=== PATIENT | female | born 1945 | race Caucasian/White ===

== ENCOUNTER 2021-12-12 16:32 | Inpatient (IN) | payer MEDICARE ==
[2021-12-12] MEDS ORDERED: Albuterol 200 PUFF (6.7GM INHALER) INH PRN (17:11)
[2021-12-12] MEDS ORDERED: HYDROcodone/Acetaminophen 5/325 mg Tablet PO PRN (17:11)
[2021-12-12] MEDS ORDERED: Acetaminophen 325 MG TAB PO PRN (17:15)
[2021-12-12] MEDS ORDERED: Bisacodyl 5 MG TAB PO PRN (17:15)
[2021-12-12] MEDS ORDERED: Ondansetron ODT 4 MG TAB PO PRN (17:15)
[2021-12-12] MEDS: Apixaban 5 MG TAB PO SCH (21:58)
[2021-12-12] MEDS: Atorvastatin Calcium 10 MG TAB PO SCH (21:58)
[2021-12-12] MEDS: Brimonidine Tartrate 0.2% Ophth Soln 5 ml Bottle EA EYE SCH (21:59)
[2021-12-12] MEDS: Famotidine 20 MG TAB PO SCH (21:59)
[2021-12-12] MEDS: Timolol 0.5% Ophth Soln 5 ml Bottle EA EYE SCH (22:00)
[2021-12-13 05:49] LABS: #Eosinphils 0.1 thou/uL (0.0-0.7); #Lymphocytes 1.3 thou/uL (1.20-3.40); #Monocytes 0.9 thou/uL (0.11-0.59); #Neutrophils 5.8 thou/uL (1.40-6.50); %Basophils 0.6 % (0.0-1.0); %Eosinophils 1.4 % (0.0-10.0); %Lymphocytes 15.9 % (21.0-51.0); %Monocytes 10.8 % (0.0-10.0); %Neutrophils 71.4 % (42.0-75.0); Mean Corpuscular HGB CONC 34.2 g/dL (32.0-36.0); Mean Corpuscular Hemoglobin 32.8 pg (27.0-31.0); Mean Corpuscular Volume 95.9 fL (78.0-98.0); Mean Platelet Volume 6.5 fL (7.4-10.4); Platelet Count 205 thou/uL (130-400); RBC Distribution Width 10.7 % (11.5-14.5); Red Blood Cell (RBC) Count 3.66 mill/uL (4.20-5.40); White Blood Cell (WBC) Count 8.2 thou/uL (4.8-10.8)
[2021-12-13 06:01] LABS: ALT (SGPT) 112 U/L (8-55); AST (SGOT) 91 U/L (5-34); Albumin 3.4 g/dL (3.4-4.8); Alkaline Phosphatase 47 U/L (40-110); Anion Gap 14 mmol/L (10-20); BUN (Urea Nitrogen) 10 mg/dL (9.8-20.1); Bilirubin, Total 1.2 mg/dL (0.2-1.2); Calc. Creatinine Clearance 59 mL/min (70-130); Calcium 8.8 mg/dL (7.8-10.44); Carbon Dioxide 29 mmol/L (23-31); Chloride 105 mmol/L (98-107); Estimated GFR 83; Globulin 2.3 g/dL (2.4-3.5); Glucose 100 mg/dL (83-110); Potassium 3.8 mmol/L (3.5-5.1); Protein, Total 5.7 g/dL (5.8-8.1); Sodium 144 mmol/L (136-145)
[2021-12-13] MEDS: Apixaban 5 MG TAB PO SCH ×2 (08:16→20:34)
[2021-12-13] MEDS: Dronedarone HCl 400 MG TAB PO SCH ×2 (08:16→18:37)
[2021-12-13] MEDS: Famotidine 20 MG TAB PO SCH ×2 (08:16→20:34)
[2021-12-13] MEDS: Brimonidine Tartrate 0.2% Ophth Soln 5 ml Bottle EA EYE SCH ×2 (08:17→20:34)
[2021-12-13] MEDS: Timolol 0.5% Ophth Soln 5 ml Bottle EA EYE SCH ×2 (08:17→20:35)
[2021-12-13] MEDS ORDERED: Lisinopril 10 MG TAB PO SCH (13:00)
[2021-12-13] MEDS ORDERED: hydrALAZINE 25 MG TAB PO PRN (18:08)
[2021-12-13] MEDS: Atorvastatin Calcium 10 MG TAB PO SCH (20:34)
[2021-12-14] MEDS ORDERED: hydrALAZINE 10 MG TAB ONE ×2 (03:24→03:30)
[2021-12-14] MEDS: hydrALAZINE 10 MG TAB PO PRN (03:46)
[2021-12-14 06:13] LABS: ALT (SGPT) 92 U/L (8-55); AST (SGOT) 49 U/L (5-34); Albumin 3.5 g/dL (3.4-4.8); Alkaline Phosphatase 48 U/L (40-110); Anion Gap 15 mmol/L (10-20); BUN (Urea Nitrogen) 10 mg/dL (9.8-20.1); Bilirubin, Total 1.2 mg/dL (0.2-1.2); Calc. Creatinine Clearance 54 mL/min (70-130); Calcium 8.6 mg/dL (7.8-10.44); Carbon Dioxide 28 mmol/L (23-31); Chloride 104 mmol/L (98-107); Estimated GFR 75; Globulin 2.3 g/dL (2.4-3.5); Glucose 96 mg/dL (83-110); Protein, Total 5.8 g/dL (5.8-8.1); Sodium 144 mmol/L (136-145)
[2021-12-14] MEDS: Lisinopril 20 MG TAB PO SCH (08:17)
[2021-12-14] MEDS: Famotidine 20 MG TAB PO SCH ×2 (08:17→21:15)
[2021-12-14] MEDS: Apixaban 5 MG TAB PO SCH ×2 (08:18→21:15)
[2021-12-14] MEDS: Timolol 0.5% Ophth Soln 5 ml Bottle EA EYE SCH ×2 (08:18→21:15)
[2021-12-14] MEDS: Brimonidine Tartrate 0.2% Ophth Soln 5 ml Bottle EA EYE SCH ×2 (08:18→21:15)
[2021-12-14] MEDS: Dronedarone HCl 400 MG TAB PO SCH ×2 (08:18→17:47)
[2021-12-14] MEDS ORDERED: Potassium Chloride 20 MEQ TAB PO SCH (11:30)
[2021-12-14 15:24] LABS: HBCM Index 0.09 S/CO (0-0.79); HBSAg Index 0.22 S/CO (0-0.99); Hep A IgM AB Non-Reactive (NonReactive); Hep A IgM S/CO 0.25 S/CO (0-0.79); Hep B Surf Ag Non-Reactive S/CO (NonReactive); Hep C IgG Ab Non-Reactive (NonReactive); Hep C Index 0.07 S/CO (0-0.79); Hepatitis B Core IgM Abs Non-Reactive (NonReactive)
[2021-12-14] MEDS: Atorvastatin Calcium 10 MG TAB PO SCH (21:15)
[2021-12-15 06:11] LABS: Anion Gap 14 mmol/L (10-20); BUN (Urea Nitrogen) 13 mg/dL (9.8-20.1); Calc. Creatinine Clearance 52 mL/min (70-130); Calcium 8.9 mg/dL (7.8-10.44); Carbon Dioxide 29 mmol/L (23-31); Chloride 106 mmol/L (98-107); Estimated GFR 75; Glucose 101 mg/dL (83-110); Potassium 4.2 mmol/L (3.5-5.1); Sodium 145 mmol/L (136-145)
[2021-12-15] MEDS: Lisinopril 20 MG TAB PO SCH (08:06)
[2021-12-15] MEDS: Famotidine 20 MG TAB PO SCH ×2 (08:06→20:34)
[2021-12-15] MEDS: Dronedarone HCl 400 MG TAB PO SCH ×2 (08:06→17:50)
[2021-12-15] MEDS: Timolol 0.5% Ophth Soln 5 ml Bottle EA EYE SCH ×2 (08:07→20:34)
[2021-12-15] MEDS: Brimonidine Tartrate 0.2% Ophth Soln 5 ml Bottle EA EYE SCH ×2 (08:07→20:34)
[2021-12-15] MEDS: Apixaban 5 MG TAB PO SCH ×2 (08:07→20:34)
[2021-12-15] MEDS: hydrALAZINE 10 MG TAB PO PRN (17:50)
[2021-12-15] MEDS: Atorvastatin Calcium 10 MG TAB PO SCH (20:34)
[2021-12-16] MEDS: Dronedarone HCl 400 MG TAB PO SCH ×2 (07:52→17:57)
[2021-12-16] MEDS: Apixaban 5 MG TAB PO SCH ×2 (07:52→21:28)
[2021-12-16] MEDS: Lisinopril 20 MG TAB PO SCH (07:52)
[2021-12-16] MEDS: Famotidine 20 MG TAB PO SCH ×2 (07:52→21:29)
[2021-12-16] MEDS: Brimonidine Tartrate 0.2% Ophth Soln 5 ml Bottle EA EYE SCH ×2 (07:53→21:29)
[2021-12-16] MEDS: Timolol 0.5% Ophth Soln 5 ml Bottle EA EYE SCH ×2 (07:53→21:29)
[2021-12-16] MEDS: Senokot S 8.6-50 MG TAB PO PRN (14:03)
[2021-12-16] MEDS ORDERED: diphenhydrAMINE 25 MG CAP PO PRN (19:15)
[2021-12-16] MEDS: Atorvastatin Calcium 10 MG TAB PO SCH (21:29)
[2021-12-17] MEDS: Lisinopril 20 MG TAB PO SCH (08:47)
[2021-12-17] MEDS: Apixaban 5 MG TAB PO SCH ×2 (08:48→21:14)
[2021-12-17] MEDS: Dronedarone HCl 400 MG TAB PO SCH ×2 (08:48→16:47)
[2021-12-17] MEDS: Famotidine 20 MG TAB PO SCH ×2 (08:49→21:14)
[2021-12-17] MEDS: Timolol 0.5% Ophth Soln 5 ml Bottle EA EYE SCH ×2 (08:50→21:18)
[2021-12-17] MEDS: Brimonidine Tartrate 0.2% Ophth Soln 5 ml Bottle EA EYE SCH ×2 (08:50→21:13)
[2021-12-17] MEDS: Atorvastatin Calcium 10 MG TAB PO SCH (21:14)
[2021-12-17] MEDS: Senokot S 8.6-50 MG TAB PO PRN (21:14)
[2021-12-18] MEDS: Dronedarone HCl 400 MG TAB PO SCH ×2 (07:56→16:56)
[2021-12-18] MEDS: Lisinopril 20 MG TAB PO SCH (07:57)
[2021-12-18] MEDS: Apixaban 5 MG TAB PO SCH ×2 (07:57→21:12)
[2021-12-18] MEDS: Famotidine 20 MG TAB PO SCH ×2 (07:57→21:12)
[2021-12-18] MEDS: Brimonidine Tartrate 0.2% Ophth Soln 5 ml Bottle EA EYE SCH ×2 (07:57→21:14)
[2021-12-18] MEDS: Timolol 0.5% Ophth Soln 5 ml Bottle EA EYE SCH ×2 (07:58→21:14)
[2021-12-18] MEDS ORDERED: Methocarbamol 500 MG TAB PO PRN (17:00)
[2021-12-18] MEDS ORDERED: Polyethylene Glycol 3350 17 GM Packet PO PRN (17:00)
[2021-12-18] MEDS ORDERED: HYDROcodone/Acetaminophen 5/325 mg Tablet PO PRN (17:02)
[2021-12-18] MEDS: Atorvastatin Calcium 10 MG TAB PO SCH (21:12)
[2021-12-18] MEDS: Senokot S 8.6-50 MG TAB PO PRN (21:13)
[2021-12-19] MEDS: Dronedarone HCl 400 MG TAB PO SCH ×2 (08:23→17:42)
[2021-12-19] MEDS: Famotidine 20 MG TAB PO SCH ×2 (08:23→20:23)
[2021-12-19] MEDS: Apixaban 5 MG TAB PO SCH ×2 (08:24→20:23)
[2021-12-19] MEDS: Lisinopril 20 MG TAB PO SCH (08:24)
[2021-12-19] MEDS: Timolol 0.5% Ophth Soln 5 ml Bottle EA EYE SCH ×2 (08:26→20:25)
[2021-12-19] MEDS: Brimonidine Tartrate 0.2% Ophth Soln 5 ml Bottle EA EYE SCH ×2 (08:26→20:24)
[2021-12-19] MEDS ORDERED: Non-Formulary Item 1 EACH (Alendronate Sodium [Alendronate Sodium] 35 MG Tablet) PO SCH (09:00)
[2021-12-19] MEDS ORDERED: hydrALAZINE 25 MG TAB PO PRN (14:15)
[2021-12-19] MEDS: Atorvastatin Calcium 10 MG TAB PO SCH (20:23)
[2021-12-20 07:39] LABS: ALT (SGPT) 36 U/L (8-55); AST (SGOT) 22 U/L (5-34); Albumin 3.6 g/dL (3.4-4.8); Alkaline Phosphatase 55 U/L (40-110); Anion Gap 13 mmol/L (10-20); BUN (Urea Nitrogen) 13 mg/dL (9.8-20.1); Bilirubin, Total 0.9 mg/dL (0.2-1.2); CK (CPK) 39 U/L (29-168); Calc. Creatinine Clearance 55 mL/min (70-130); Carbon Dioxide 30 mmol/L (23-31); Chloride 104 mmol/L (98-107); Estimated GFR 80; Globulin 2.4 g/dL (2.4-3.5); Glucose 110 mg/dL (83-110); Potassium 3.2 mmol/L (3.5-5.1); Sodium 144 mmol/L (136-145)
[2021-12-20] MEDS: Famotidine 20 MG TAB PO SCH ×2 (07:48→20:24)
[2021-12-20] MEDS: Dronedarone HCl 400 MG TAB PO SCH ×2 (07:48→17:27)
[2021-12-20] MEDS: Apixaban 5 MG TAB PO SCH ×2 (07:49→20:24)
[2021-12-20] MEDS: Timolol 0.5% Ophth Soln 5 ml Bottle EA EYE SCH ×2 (07:49→20:25)
[2021-12-20] MEDS: Lisinopril 20 MG TAB PO SCH (07:49)
[2021-12-20] MEDS: Brimonidine Tartrate 0.2% Ophth Soln 5 ml Bottle EA EYE SCH ×2 (07:50→20:24)
[2021-12-20] MEDS: Atorvastatin Calcium 10 MG TAB PO SCH (20:24)
[2021-12-20 20:53] VITALS: BMI 20.7
[2021-12-20] MEDS: Potassium Chloride 20 MEQ TAB PO SCH (22:12)
[2021-12-21 05:56] LABS: Anion Gap 16 mmol/L (10-20); BUN (Urea Nitrogen) 12 mg/dL (9.8-20.1); Calc. Creatinine Clearance 60 mL/min (70-130); Carbon Dioxide 27 mmol/L (23-31); Chloride 105 mmol/L (98-107); Estimated GFR 86; Glucose 95 mg/dL (83-110); Magnesium 2.3 mg/dL (1.6-2.6); Sodium 144 mmol/L (136-145)
[2021-12-21] MEDS: Timolol 0.5% Ophth Soln 5 ml Bottle EA EYE SCH ×2 (08:03→20:33)
[2021-12-21] MEDS: Brimonidine Tartrate 0.2% Ophth Soln 5 ml Bottle EA EYE SCH ×2 (08:03→20:33)
[2021-12-21] MEDS: Lisinopril 20 MG TAB PO SCH (08:04)
[2021-12-21] MEDS: Dronedarone HCl 400 MG TAB PO SCH ×2 (08:04→17:31)
[2021-12-21] MEDS: Famotidine 20 MG TAB PO SCH ×2 (08:04→20:31)
[2021-12-21] MEDS: Apixaban 5 MG TAB PO SCH ×2 (08:04→20:32)
[2021-12-21] MEDS: Atorvastatin Calcium 10 MG TAB PO SCH (20:32)
[2021-12-21] MEDS: Potassium Chloride 20 MEQ TAB PO SCH (20:33)
[2021-12-22] MEDS: Apixaban 5 MG TAB PO SCH ×2 (08:15→21:45)
[2021-12-22] MEDS: Dronedarone HCl 400 MG TAB PO SCH ×2 (08:15→17:35)
[2021-12-22] MEDS: Famotidine 20 MG TAB PO SCH ×2 (08:15→21:45)
[2021-12-22] MEDS: Lisinopril 20 MG TAB PO SCH (08:16)
[2021-12-22] MEDS: Brimonidine Tartrate 0.2% Ophth Soln 5 ml Bottle EA EYE SCH ×2 (08:17→21:45)
[2021-12-22] MEDS: Timolol 0.5% Ophth Soln 5 ml Bottle EA EYE SCH ×2 (08:17→21:46)
[2021-12-22] MEDS: Potassium Chloride 20 MEQ TAB PO SCH (21:45)
[2021-12-22] MEDS: Atorvastatin Calcium 10 MG TAB PO SCH (21:45)
[2021-12-23] MEDS: Apixaban 5 MG TAB PO SCH ×2 (08:42→20:14)
[2021-12-23] MEDS: Dronedarone HCl 400 MG TAB PO SCH ×2 (08:42→17:25)
[2021-12-23] MEDS: Famotidine 20 MG TAB PO SCH ×2 (08:42→20:14)
[2021-12-23] MEDS: Lisinopril 20 MG TAB PO SCH (08:42)
[2021-12-23] MEDS: Timolol 0.5% Ophth Soln 5 ml Bottle EA EYE SCH ×2 (08:43→20:14)
[2021-12-23] MEDS: Brimonidine Tartrate 0.2% Ophth Soln 5 ml Bottle EA EYE SCH ×2 (08:43→20:14)
[2021-12-23] MEDS: Atorvastatin Calcium 10 MG TAB PO SCH (20:14)
[2021-12-24 06:02] LABS: #Basophils 0.2 thou/uL (0.0-0.2); #Eosinphils 0.1 thou/uL (0.0-0.7); #Lymphocytes 1.6 thou/uL (1.20-3.40); #Monocytes 1.1 thou/uL (0.11-0.59); #Neutrophils 7.9 thou/uL (1.40-6.50); %Basophils 1.4 % (0.0-1.0); %Eosinophils 1.3 % (0.0-10.0); %Lymphocytes 14.9 % (21.0-51.0); %Monocytes 9.8 % (0.0-10.0); %Neutrophils 72.7 % (42.0-75.0); Hemoglobin 12.6 g/dL (12.0-16.0); Mean Corpuscular Hemoglobin 33.2 pg (27.0-31.0); Mean Platelet Volume 6.3 fL (7.4-10.4); Platelet Count 424 thou/uL (130-400); RBC Distribution Width 12.1 % (11.5-14.5); Red Blood Cell (RBC) Count 3.78 mill/uL (4.20-5.40); White Blood Cell (WBC) Count 10.9 thou/uL (4.8-10.8)
[2021-12-24 06:12] LABS: Anion Gap 14 mmol/L (10-20); BUN (Urea Nitrogen) 16 mg/dL (9.8-20.1); Calc. Creatinine Clearance 54 mL/min (70-130); Calcium 9.3 mg/dL (7.8-10.44); Carbon Dioxide 27 mmol/L (23-31); Chloride 103 mmol/L (98-107); Estimated GFR 76; Glucose 91 mg/dL (83-110); Potassium 4.1 mmol/L (3.5-5.1)
[2021-12-24 06:22] LABS: Sodium 140 mmol/L (136-145)
[2021-12-24] MEDS: Dronedarone HCl 400 MG TAB PO SCH ×2 (08:57→17:03)
[2021-12-24] MEDS: Apixaban 5 MG TAB PO SCH ×2 (08:57→21:15)
[2021-12-24] MEDS: Lisinopril 20 MG TAB PO SCH (08:57)
[2021-12-24] MEDS: Brimonidine Tartrate 0.2% Ophth Soln 5 ml Bottle EA EYE SCH ×2 (08:58→21:15)
[2021-12-24] MEDS: Famotidine 20 MG TAB PO SCH ×2 (08:58→21:15)
[2021-12-24] MEDS: Timolol 0.5% Ophth Soln 5 ml Bottle EA EYE SCH ×2 (08:59→21:14)
[2021-12-24] MEDS: Atorvastatin Calcium 10 MG TAB PO SCH (21:15)
[2021-12-25] MEDS: Dronedarone HCl 400 MG TAB PO SCH ×2 (08:06→17:31)
[2021-12-25] MEDS: Apixaban 5 MG TAB PO SCH ×2 (08:06→20:09)
[2021-12-25] MEDS: Brimonidine Tartrate 0.2% Ophth Soln 5 ml Bottle EA EYE SCH ×2 (08:06→20:10)
[2021-12-25] MEDS: Famotidine 20 MG TAB PO SCH ×2 (08:06→20:09)
[2021-12-25] MEDS: Lisinopril 20 MG TAB PO SCH (08:06)
[2021-12-25] MEDS: Timolol 0.5% Ophth Soln 5 ml Bottle EA EYE SCH ×2 (08:07→20:10)
[2021-12-25] MEDS: Atorvastatin Calcium 10 MG TAB PO SCH (20:09)
[2021-12-26] MEDS: Brimonidine Tartrate 0.2% Ophth Soln 5 ml Bottle EA EYE SCH (09:41)
[2021-12-26] MEDS: Dronedarone HCl 400 MG TAB PO SCH ×2 (09:42→18:35)
[2021-12-26] MEDS: Lisinopril 20 MG TAB PO SCH (09:42)
[2021-12-26] MEDS: Famotidine 20 MG TAB PO SCH ×2 (09:42→18:37)
[2021-12-26] MEDS: Apixaban 5 MG TAB PO SCH ×2 (09:42→18:37)
[2021-12-26] MEDS: Timolol 0.5% Ophth Soln 5 ml Bottle EA EYE SCH (09:42)
[2021-12-26 09:45] VITALS: BP 116/67
[2021-12-26 10:34] VITALS: TEMP 96.8
[2021-12-26] MEDS: Atorvastatin Calcium 10 MG TAB PO SCH (18:37)
== END 2021-12-26 18:55 | disposition home or self-care (01) | DRG 948 ==
LOC: NAV ACUTE 16:32
PROVIDERS: ADMIT Family Medicine; ATTEND Family Medicine
DX: R53.81 Other malaise (principal); N17.9 Acute kidney failure, unspecified; R53.1 Weakness; I48.91 Unspecified atrial fibrillation; I10 Essential (primary) hypertension; E78.5 Hyperlipidemia, unspecified; R74.01 Elevation of levels of liver transaminase levels; E87.6 Hypokalemia; G24.3 Spasmodic torticollis; Z98.49 Cataract extraction status, unspecified eye; Z86.16 Personal history of COVID-19; Z79.899 Other long term (current) drug therapy; Z79.01 Long term (current) use of anticoagulants
CPT/HCPCS: 36415; 80048; 80053; 80074; 82550; 83735; 85025